=== PATIENT | female | born 1990 | race Caucasian/White ===

== ENCOUNTER 2019-01-27 15:32 | Emergency (ER) | payer SELFPAY ==
[~2019-01-27] VITALS: Ht 154.9 cm; Wt 90.3 kg
[2019-01-27 15:41] VITALS: BP 110/76
--- NOTE | 2019-01-27 15:48 | NUR ---
PT AMB WITH ASISTED TO BED 11
--- NOTE | 2019-01-27 15:49 | NUR ---
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
--- NOTE | 2019-01-27 15:56 | NUR ---
C/O RIGHT KNEE PAIN S/P FALL X YESTERDAY. MED HX:DENIES
[2019-01-27] MEDS ORDERED: IBUPROFEN 600 MG TAB PO ONE (16:30)
[2019-01-27 16:50] VITALS: BP 112/80
== END 2019-01-27 16:50 | disposition home or self-care (01) ==
LOC: MED 15:32
DX: S86.811A Strain of other muscle(s) and tendon(s) at lower leg level, right leg, initial encounter (principal); V49.88XA Car occupant (driver) (passenger) injured in other specified transport accidents, initial encounter; Y93.89 Activity, other specified; Y92.488 Other paved roadways as the place of occurrence of the external cause; Y99.8 Other external cause status
CPT/HCPCS: 73562; 99283; Q0092